=== PATIENT | female | born 1955 | race Caucasian/White ===

== ENCOUNTER 2023-01-09 14:39 | Outpatient (CLI) | payer MEDICARE | END 2023-01-09 14:40 | disposition home or self-care (01) | LOC: NAV RAD 14:39 | PROVIDERS: ATTEND Family Medicine | DX: M72.2 Plantar fascial fibromatosis (principal) ==

== ENCOUNTER 2024-02-16 10:50 | Outpatient (CLI) | payer MEDICARE | END 2024-02-16 10:51 | disposition home or self-care (01) | LOC: NAV RAD 10:50 | PROVIDERS: ATTEND Student in an Organized Health Care Education/Training Program | DX: M47.22 Other spondylosis with radiculopathy, cervical region (principal) | CPT/HCPCS: 72050 ==